=== PATIENT | male | born 1985 | race Caucasian/White ===

== ENCOUNTER → 2023-04-24 09:37 | Outpatient (BNVA) | payer BC, SELFPAY | PROVIDERS: Family Provider Family Medicine; Visit Provider Family Medicine | DX: F32.A Depression, unspecified (principal); E66.9 Obesity, unspecified; R53.83 Other fatigue | CPT/HCPCS: 84403 ==

== ENCOUNTER → 2024-02-28 11:16 | Outpatient (BNVA) | payer BC, SELFPAY | PROVIDERS: Family Provider Family Medicine; PCP Family Medicine; Visit Provider Family Medicine | DX: E11.9 Type 2 diabetes mellitus without complications (principal); R53.83 Other fatigue | CPT/HCPCS: 85025 ==

== ENCOUNTER → 2024-02-29 08:00 | Outpatient (BNVA) | payer BC, SELFPAY | PROVIDERS: Family Provider Family Medicine; PCP Family Medicine; Visit Provider Family Medicine | DX: E11.9 Type 2 diabetes mellitus without complications (principal); R53.83 Other fatigue | CPT/HCPCS: 80053; 80061; 83036; 84403; 84439; 84443; 85025 ==